=== PATIENT | male | born 1990 | race Caucasian/White ===

== ENCOUNTER 2017-05-03 21:10 | Emergency (ER) | payer BC ==
[2017-05-03] MEDS ORDERED: OXYMETAZOLINE 0.05% NASAL SPRAY 15ML BOTTLE. NS ONE (21:43)
[2017-05-03] MEDS ORDERED: AMOX875T PO (21:52)
[2017-05-03] MEDS ORDERED: AMOXICILLIN 250 MG CAPSULE PO ONE (22:00)
--- NOTE | 2017-05-03 22:00 | PHYS DOC ---
General Chief Complaint: NOSE FOREIGN BODY Stated Complaint: BLOCKAGE IN NOSE Time Seen by MD: 21:11 Source: patient Exam Limitations: no limitations Problems: History of Present Illness Initial Comments Patient is a 18-year-old male complaining of right sided nose obstruction. Patient states that he's had maxillary and frontal sinus pressure for about 2 weeks, he's had green nasal discharge and productive cough. Tonight while blowing his nose he states that something became lodged in the upper aspect of his right nare and he complains of discomfort and inability to breathe through the right side of his nose. He denies any external foreign bodies, no headache fever chills sweats or myalgias. No epistaxis no focal neurologic deficits and no difficulty swallowing or breathing. Patient follows with Dr. Kern states he is normally healthy immunizations are up-to-date and he has no chronic illnesses. He is a nonuser of tobacco Timing/Duration: abrupt, this evening Severity: severe Location: nose Prearrival Treatment: other (aggressive nose blowing) Modifying Factors: improves with other Associated Symptoms: cough, facial pain/swelling, nasal congestion/drainage, sinus infection Allergies: Coded Allergies: Sulfa (Sulfonamide Antibiotics) (Verified Allergy, Unknown, 05/03/17) Past Medical History Medical History: no pertinent history Surgical History: noncontributory Social History Smoker: non-smoker Alcohol: none Drugs: none Constitutional: denies chills, denies diaphoresis, denies fever, denies malaise Eyes: denies blindness, denies blurred vision, denies drainage, denies decreased acuity, denies foreign body sensation Ears: denies dizziness, denies pain, denies tinnitus Nose: see HPI, denies clots, denies epistaxis, denies bloody discharge, denies clear discharge Throat: denies pain, denies neck stiffness, denies painful swallowing, denies difficulty with fluids Respiratory: cough, denies shortness of breath, denies wheezing Gastrointestinal: denies diarrhea, denies nausea, denies vomiting Musculoskeletal: denies back pain, denies joint swelling, denies neck pain Neurological: see HPI Physical Exam General Appearance: WD/WN, no apparent distress Eyes: bilateral eye normal inspection, bilateral eye PERRL, bilateral eye EOMI Nose: other (copious clear discharge and apparent soft tissue mass right nare, left is normal) Mouth/Throat: normal mouth inspection, pharynx normal Neck: non-tender, supple Cardiovascular/Respiratory: normal peripheral pulses, normal breath sounds, no respiratory distress Neurologic/Psychiatric: room service bellhop II-XII nml as tested, no motor/sensory deficits, alert, normal mood/affect, oriented x 3 Skin: normal color, warm/dry Orders, Labs, Meds PROCEDURE Clearance of FB soft tissue obstruction right nare. Informed consent obtained. Nasal speculum/otoscope utilized to visualized what appeared to be soft tissue foreign body presumably at maxillary sinus os. Hollins extractor passed beyond obstruction/inflated, and with traction FB relocated to approx 2 cm from external nare. Alligator forceps with removal of two fleshy smooth soft tissue masses approximately 0.75cm diam, with relief of pt sensation of right nare FB/ obstruction. Procedure was relatively painless, and some bleeding occurred after the removal controlled by direct pressure and afrin nasal sprays x 2. Patient tolerated procedure well no complications, EBL minimal. Patient observed for a period to ensure no further rebleed, discharge instructions were discussed face to face with patient verbally by myself in detail and provided in written discharge instructions. Departure Time of Disposition: 21:53 Disposition: 01 HOME, SELF-CARE Diagnosis: Nasal Obstruction, FB Removal, Sinusitis Condition: IMPROVED Patient Instructions: Sinusitis, [id number] Additional Instructions: As discussed it appears that while blowing your nose you blew a polyp into your right nare causing obstruction. 2 soft tissue masses which were removed have been sent to pathology, results will be available to your physician Dr. Kern in a few weeks. Try to refrain from excessive blowing your nose until you've seen a specialist. Use the vasoconstrictive nasal spray dispensed to you in the emergency department 2 sprays every 8 hours as needed for bleeding; do not use longer than 24 hours at a time. Rx: amoxicillin Follow-up with Dr. Kern on Sunday for recheck and to discuss ENT referral. Follow-up with Dr. Kern for specimen pathology results. Return to ED with new or changing symptoms. MANJIT HERNANDEZ DO May 03, 2017 22:00
[2017-05-03 22:07] VITALS: BP 133/84
--- NOTE | 2017-05-07 13:16 | PATHOLOGY ---
PATHOLOGY REPORT * * * * * * * * FINAL DIAGNOSIS: A. 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 B. 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 (JPM:lalo; 05/07/2017) REPORT ELECTRONICALLY SIGNED BY: Dimitri Fox M.D. DATE/TIME: 05/07/2017 13:15 * * * * * * * * GROSS PATHOLOGY: A. The specimen is received in formalin, labeled "Eugene Diamond, right nare," and consists of a polypoid segment of whelan-brown soft tissue measuring 0.8 x 0.5 x 0.3 cm. It is inked, bisected, and entirely submitted in cassette A1. B. The specimen is received in formalin, labeled "Eugene Diamond, right nare," and consists of a polypoid segment of whelan-brown soft tissue measuring 0.9 x 0.6 x 0.3 cm. It is inked, trisected, and entirely submitted in cassette B1. (SDY; 05/04/2017) INITIAL CPT CODE(S): A; 59908 B; 85250 Professional services performed by [email or web address] [address] Technical services performed by [facility] at [address] [place] [address], [facility] [address] [address]. SPECIMEN(S) RECEIVED: A.Soft tissue mass from right nare, suspect sinus polyp B.Sof tissue mass from right nare, suspect sinus polyp CLINICAL HISTORY: Nare soft tissue obstruction Suspect sinus polyps PATIENT: EUGENE DIAMOND /AGE: 307/19/1990 (Age: 26) PATIENT #: [id number] ALT CASE #: SPECIMEN COLLECTION DATE: 05/03/2017 SPECIMEN RECEIVED DATE: 05/04/2017 [facility] - [id number] [place] [address] - PHONE: [phone] * * * END OF REPORT * * *
== END 2017-05-03 22:07 | disposition home or self-care (01) ==
LOC: ER 21:10
DX: T17.0XXA Foreign body in nasal sinus, initial encounter (principal); J32.9 Chronic sinusitis, unspecified; Z88.2 Allergy status to sulfonamides; X58.XXXA Exposure to other specified factors, initial encounter; Y93.89 Activity, other specified; Y99.8 Other external cause status; Y92.89 Other specified places as the place of occurrence of the external cause
CPT/HCPCS: 30300; 88304; 99284-25

== ENCOUNTER → 2017-05-30 | Outpatient (CLI) | payer BC ==
[2017-05-03 22:07] VITALS: BP 133/84
[~2017-05-30] MED LIST: AMOX875T PO
--- NOTE | 2017-05-31 08:24 | RAD ---
Examination: CT maxillofacial bones without contrast History: History of sinusitis, nasal polyps. Comparison: None available Technique: Axial CT images of the maxillofacial bones were performed without contrast. Coronal and sagittal reformats are performed PQRS Compliance Statement: One or more of the following individualized dose reduction techniques were utilized for this examination: 1. Automated exposure control 2. Adjustment of the mA and/or kV according to patient size 3. Use of iterative reconstruction technique Findings: The visualized intracranial portion grossly appears unremarkable. The visualized bilateral orbital globes appear intact. The bilateral frontal sinuses, sphenoid sinuses, mastoid air cells are clear. There is mild mucosal thickening identified in the bilateral ethmoidal sinuses. Small mucous retention cyst or polyp identified in the posterior medial left maxillary sinus. There is a small mucus retention cyst or polyp identified in the inferior wall of the right maxilla. There is moderate mucosal thickening identified in the right maxillary sinus. Mild mucosal thickening left maxillary sinus. Impression: 1. Bilateral ethmoidal sinus and bilateral maxillary sinus mucosal thickening likely chronic sinus disease. Small mucous retention cyst identified in the bilateral maxillary sinus.
== END | disposition home or self-care (01) ==
LOC: CT 16:32
PROVIDERS: ATTEND Otolaryngology
DX: J32.9 Chronic sinusitis, unspecified (principal); J34.1 Cyst and mucocele of nose and nasal sinus
CPT/HCPCS: 70486